=== PATIENT | male | born 1995 | race American Indian/Alaskan Native ===

== ENCOUNTER 2016-11-09 10:51 | Emergency (ER) | payer SELFPAY ==
[2016-11-09 11:59] VITALS: BP 121/82
== END 2016-11-09 16:55 | disposition left against medical advice (07) ==
LOC: ED 10:51
DX: R11.2 Nausea with vomiting, unspecified (principal); Z53.21 Procedure and treatment not carried out due to patient leaving prior to being seen by health care provider

== ENCOUNTER 2016-11-09 11:46 | Emergency (ER) | payer SELFPAY | END 2016-11-09 11:58 | disposition home or self-care (01) | LOC: ED 11:46 | DX: R11.2 Nausea with vomiting, unspecified (principal); Z53.21 Procedure and treatment not carried out due to patient leaving prior to being seen by health care provider ==